=== PATIENT | male | born 1990 | race Caucasian/White ===

== ENCOUNTER 2020-09-18 17:00 | Emergency (ER) | payer SELFPAY ==
[~2020-09-18] VITALS: Ht 180.3 cm; Wt 90.9 kg
[2020-09-18 18:53] VITALS: BP 122/77
== END 2020-09-18 18:59 | disposition home or self-care (01) ==
LOC: EMS 17:00
DX: M54.5 Low back pain (principal); V49.9XXA Car occupant (driver) (passenger) injured in unspecified traffic accident, initial encounter; Y93.89 Activity, other specified; Y92.89 Other specified places as the place of occurrence of the external cause; Y99.8 Other external cause status
CPT/HCPCS: 72100